=== PATIENT | female | born 1980 | race Caucasian/White ===

== ENCOUNTER 2020-06-13 14:11 | Emergency (ER) | payer MEDICAID ==
[2020-06-13] MEDS: Morphine 2 MG/ML SYRINGE IVPUSH ONE (15:25)
[2020-06-13] MEDS: Ondansetron 4 MG/2 ML SDV IVPUSH ONE (15:26)
[2020-06-13] MEDS: Sodium Chloride 0.9% 1,000 ML IV ONE (15:29)
[2020-06-13] MEDS: Ondansetron 4 MG/2 ML SDV ONE (15:29)
[2020-06-13] MEDS: Morphine 2 MG/ML SYRINGE ONE (15:44)
[2020-06-13] MEDS: Ketorolac 30 MG/ML SDV IVPUSH ONE (15:50)
[2020-06-13] MEDS ORDERED: Ketorolac 30 MG/ML SDV ONE (15:55)
--- NOTE | 2020-06-13 16:57 | EDM.PDOC ---
ED HPI GENERAL MEDICAL PROBLEM - General Chief Complaint: Back Pain or Injury Stated Complaint: BACK PAIN, POSSIBLE UTI Time Seen by Provider: 06/13/20 15:15 Source of Information: Reports: Patient History Limitations: Reports: No Limitations - History of Present Illness INITIAL COMMENTS - FREE TEXT/NARRATIVE: Patient is a 39 y/o female who presents for left lower back pain that wraps to the front left lower quadrant and groin. Pain started at 0800 today and is sharp, cramping, and constant. Associate nausea. Patient denies any fever, bloody/dark stools, diarrhea, constipation, , or dysuria. 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, c-sections - Past Surgical History HEENT Surgical History: Reports: None Social & Family History - Tobacco Use Tobacco Use Status *Q: Never Tobacco User Second Hand Smoke Exposure: No - Caffeine Use Caffeine Use: Reports: None - Alcohol Use Days Per Week of Alcohol Use: 1 Number of Drinks Per Day: 6 Total Drinks Per Week: 6 - Recreational Drug Use Recreational Drug Use: Yes Drug Use in Last 12 Months: Yes Recreational Drug Type: Reports: Marijuana/Hashish Recreational Drug Use Frequency: Rarely ED ROS GENERAL - Review of Systems Review Of Systems: See Below Constitutional: Reports: No Symptoms HEENT: Reports: No Symptoms Respiratory: Reports: No Symptoms Cardiovascular: Reports: No Symptoms GI/Abdominal: Reports: Abdominal Pain, Nausea : Reports: No Symptoms Musculoskeletal: Reports: Back Pain Skin: Reports: No Symptoms Neurological: Reports: No Symptoms ED EXAM, GI/ABD - Physical Exam Exam: See Below Exam Limited By: No Limitations General Appearance: Alert, No Apparent Distress Head: Atraumatic, Normocephalic Respiratory/Chest: No Respiratory Distress, Lungs Clear, Normal Breath Sounds, No Accessory Muscle Use, Chest Non-Tender Cardiovascular: Normal Peripheral Pulses, Regular Rate, Rhythm, No Edema, No Murmur GI/Abdominal Exam: Normal Bowel Sounds, Soft, Non-Tender, No Distention Back Exam: Normal Inspection, Other (no CVA tenderness) Neurological: Alert, Oriented, CN II-XII Intact, Normal Cognition, No Motor/Sens ory Deficits Course - Vital Signs Text/Narrative:: Patient received zofran, morphine, toradol, and fluids. Labs unremarkable except for leukocytosis. CT ABD/PEL with acute diverticulitis of distal descending colon. Last Recorded V/S: Last Vital Signs Temp 37.4 C 06/13/20 15:01 Pulse 60 06/13/20 15:01 Resp 16 06/13/20 15:01 BP 127/69 06/13/20 15:01 Pulse Ox 100 06/13/20 15:01 - Orders/Labs/Meds Orders: Active Orders 24 hr Category Date Time Status Abdomen Pelvis wo Cont [CT] Stat Exams 06/13/20 15:09 Taken Labs: Laboratory Tests 06/13/20 06/13/20 06/13/20 Range/Units 14:58 15:00 15:29 WBC 18.2 H (4.0-11.0) K/uL RBC 4.22 (3.80-5.80) M/uL Hgb 13.3 (11.5-16.5) g/dL Hct 39.4 (37.0-47.0) % MCV 93 (76-96) fL MCH 31.5 (27.0-32.0) pg MCHC 33.8 (31.0-35.0) g/dL RDW 12.6 (11.0-16.0) % Plt Count 240 (150-500) K/uL MPV 10.5 H (6.0-10.0) fL Neut % (Auto) 86.2 H (45.0-70.0) % Lymph % (Auto) 7.7 L (20.0-40.0) % Posey % (Auto) 5.8 (3.0-10.0) % Eos % (Auto) 0.2 L (1.0-5.0) % Baso % (Auto) 0.1 (0.0-0.5) % Neut # (Auto) 15.73 H (2.00-7.50) K/uL Lymph # (Auto) 1.41 L (1.50-4.00) K/uL Posey # (Auto) 1.05 H (0.20-0.80) K/uL Eos # (Auto) 0.03 L (0.04-0.40) K/uL Baso # (Auto) 0.02 (0.02-0.10) K/uL Sodium (136-145) mmol/L Potassium (3.5-5.1) mmol/L Chloride (98-107) mmol/L Carbon Dioxide (21.0-32.0) mmol/L Anion Gap (5.0-15.0) mmol/L BUN (8-26) mg/dL Creatinine (0.55-1.02) mg/dL Est Cr Clr Drug Dosing mL/min Estimated GFR (MDRD) (>60) MLS/MIN BUN/Creatinine Ratio (6-25) Glucose (74-100) mg/dL Calcium (8.5-10.1) mg/dL Total Bilirubin (0.0-1.0) mg/dL AST (15-37) U/L ALT (12-78) U/L Alkaline Phosphatase (46-116) U/L Total Protein (6.4-8.2) g/dL Albumin (3.4-5.0) g/dL Globulin (2.2-4.2) g/dL Albumin/Globulin Ratio (0.8-2.0) Urine Color Yellow Urine Appearance Clear (CLEAR) Urine pH 5.0 (5.0-8.0) Ur Specific [place] >= 1.030 (1.003-1.030) Urine Protein Negative (NEGATIVE) mg/dL Urine Glucose (UA) Negative (NEGATIVE) mg/dL Urine Ketones Negative (NEGATIVE) mg/dL Urine Occult Blood Small H (NEGATIVE) Urine Nitrite Negative (NEGATIVE) Urine Bilirubin Negative (NEGATIVE) Urine Urobilinogen 0.2 (0.2-1.0) E.U./dL Ur Leukocyte Esterase Negative (NEGATIVE) Urine RBC 0-5 H /HPF Urine WBC Not seen /HPF Ur Squamous Epith Cells Few /HPF Urine Bacteria Few /HPF Urine Mucus Moderate /HPF Urine HCG, Qual Negative (NEGATIVE) 06/13/20 Range/Units 15:29 WBC (4.0-11.0) K/uL RBC (3.80-5.80) M/uL Hgb (11.5-16.5) g/dL Hct (37.0-47.0) % MCV (76-96) fL MCH (27.0-32.0) pg MCHC (31.0-35.0) g/dL RDW (11.0-16.0) % Plt Count (150-500) K/uL MPV (6.0-10.0) fL Neut % (Auto) (45.0-70.0) % Lymph % (Auto) (20.0-40.0) % Posey % (Auto) (3.0-10.0) % Eos % (Auto) (1.0-5.0) % Baso % (Auto) (0.0-0.5) % Neut # (Auto) (2.00-7.50) K/uL Lymph # (Auto) (1.50-4.00) K/uL Posey # (Auto) (0.20-0.80) K/uL Eos # (Auto) (0.04-0.40) K/uL Baso # (Auto) (0.02-0.10) K/uL Sodium 140 (136-145) mmol/L Potassium 3.8 (3.5-5.1) mmol/L Chloride 104 (98-107) mmol/L Carbon Dioxide 24.8 (21.0-32.0) mmol/L Anion Gap 15.0 (5.0-15.0) mmol/L BUN 11 (8-26) mg/dL Creatinine 0.84 (0.55-1.02) mg/dL Est Cr Clr Drug Dosing 76.88 mL/min Estimated GFR (MDRD) > 60 (>60) MLS/MIN BUN/Creatinine Ratio 13.1 (6-25) Glucose 94 (74-100) mg/dL Calcium 9.0 (8.5-10.1) mg/dL Total Bilirubin 0.3 (0.0-1.0) mg/dL AST 14 L (15-37) U/L ALT 27 (12-78) U/L Alkaline Phosphatase 37 L (46-116) U/L Total Protein 7.3 (6.4-8.2) g/dL Albumin 3.7 (3.4-5.0) g/dL Globulin 3.6 (2.2-4.2) g/dL Albumin/Globulin Ratio 1.0 (0.8-2.0) Urine Color Urine Appearance (CLEAR) Urine pH (5.0-8.0) Ur Specific [place] (1.003-1.030) Urine Protein (NEGATIVE) mg/dL Urine Glucose (UA) (NEGATIVE) mg/dL Urine Ketones (NEGATIVE) mg/dL Urine Occult Blood (NEGATIVE) Urine Nitrite (NEGATIVE) Urine Bilirubin (NEGATIVE) Urine Urobilinogen (0.2-1.0) E.U./dL Ur Leukocyte Esterase (NEGATIVE) Urine RBC /HPF Urine WBC /HPF Ur Squamous Epith Cells /HPF Urine Bacteria /HPF Urine Mucus /HPF Urine HCG, Qual (NEGATIVE) Meds: Medications Discontinued Medications Generic Name Dose Route Start Last Admin Trade Name Freq PRN Reason Stop Dose Admin Sodium Chloride 1,000 mls @ 999 mls/hr 06/13/20 15:14 06/13/20 15:29 Normal Saline IV 06/13/20 16:14 999 mls/hr .BOLUS ONE Administration Ketorolac Tromethamine 30 mg 06/13/20 15:43 06/13/20 15:50 Toradol IVPUSH 06/13/20 15:44 30 mg ONETIME ONE Administration Ketorolac Tromethamine Confirm 06/13/20 15:55 Toradol Administered 06/13/20 15:56 Dose 30 mg .ROUTE .STK-MED ONE Morphine Sulfate 2 mg 06/13/20 15:16 06/13/20 15:25 Morphine IVPUSH 06/13/20 15:17 2 mg ONETIME ONE Administration Morphine Sulfate Confirm 06/13/20 15:28 06/13/20 15:44 Morphine Administered 06/13/20 15:29 Not Given Dose 2 mg .ROUTE .STK-MED ONE Ondansetron HCl 4 mg 06/13/20 15:17 06/13/20 15:26 Zofran IVPUSH 06/13/20 15:18 4 mg ONETIME ONE Administration Ondansetron HCl Confirm 06/13/20 15:28 06/13/20 15:29 Zofran Administered 06/13/20 15:29 Not Given Dose 4 mg .ROUTE .STK-MED ONE Departure - Departure Time of Disposition: 17:00 Disposition: Home, Self-Care 01 Condition: Good Clinical Impression: Diverticulitis - Discharge Information *PRESCRIPTION DRUG MONITORING PROGRAM REVIEWED*: No *COPY OF PRESCRIPTION DRUG MONITORING REPORT IN PATIENT MARCY: No Instructions: Diverticulitis, [id number] Referrals: PCP,None [Primary Care Provider] - Forms: ED Department Discharge Additional Instructions: Follow up with Dr Rodriguez Sunday. Schedule follow up appointment 1-2 weeks. Talk about needing a colonoscopy. Infection will last around 10-14 days. If bloody or dark stools, fever, nausea/vomiting, come back. Easy to digest foods - shakes ok to take, clear broths, toast Lots of fluids:gatorade for every 2 glasses of water NO alcohol or caffeine. Lots of rest. Tylenol for pain. Probiotic - yogurt Sepsis Event Note (ED) - Evaluation Sepsis Screening Result: No Definite Risk - Focused Exam Vital Signs: Vital Signs Temp Pulse Resp BP Pulse Ox 06/13/20 15:01 37.4 C 60 16 127/69 100 - My Orders Last 24 Hours: My Active Orders 06/13/20 15:09 Abdomen Pelvis wo Cont [CT] Stat - Assessment/Plan Last 24 Hours: My Active Orders 06/13/20 15:09 Abdomen Pelvis wo Cont [CT] Stat Plan: Discharged with augmentin BID x 10 days, zofran, percocet, and colace. Follow up with Dr. Rodriguez next week. Return to the ED for fever >102, unable to tolerate fluids, bloody/dark stools, or worsening symptoms.
[2020-06-13] MEDS ORDERED: Amoxicillin/Clavulanate K 875-125 MG Tab ONE (17:00)
[2020-06-13] MEDS ORDERED: Acetaminophen/oxyCODONE 325-5 MG Tab ONE (17:00)
[2020-06-13] MEDS ORDERED: Ondansetron 4 MG Tab.DIS ONE (17:00)
[2020-06-13] MEDS ORDERED: Docusate Sodium 100 MG Cap ONE (17:01)
--- NOTE | 2020-06-14 09:42 | CT ---
Date of Service: 06/13/20 Clinical Data: rule out stone UNENHANCED ABDOMEN AND PELVIC CT: Multislice acquisition through the abdomen and pelvis without IV or oral contrast was performed. No priors. The lung bases are clear. The heart size is normal. The unenhanced liver appears normal. No focal hepatic lesions. The gallbladder appears normal. The spleen appears normal. The pancreas appears normal. The right and left adrenals appear normal. The right and left kidneys appear normal. No nephrocalcinosis or nephrolithiasis. No hydronephrosis or hydroureter. The bladder is partially fluid filled. It appears normal. No evidence of appendicitis. There is diverticulosis of the descending and sigmoid colon. There is pericolonic fat stranding adjacent to the descending colon. There is also a small amount of fluid in the left paracolic gutter and there is mural thickening throughout this segment of the colon. The findings are consistent with diverticulitis. No evidence of a diverticular abscess. No free air. No dilated loops of bowel. No adenopathy. No aortic aneurysm. There is a small fat-containing umbilical hernia. No other significant findings. IMPRESSION: Diverticulosis. Findings involving the descending colon consistent with diverticulitis. No evidence of diverticular abscess. [id number] [facility]
== END 2020-06-13 17:15 | disposition home or self-care (01) ==
LOC: LB.ED 14:11
DX: K57.32 Diverticulitis of large intestine without perforation or abscess without bleeding (principal)
CPT/HCPCS: 36415; 74176; 80053; 81001; 81025; 85025; 96374; 96375; 99284-25; A9270-GY; J1885; J2270; J2405; J7030